=== PATIENT | male | born 1980 | race Caucasian/White ===

== ENCOUNTER → 2019-07-08 15:44 | Outpatient (CLI) | payer BC, SELFPAY ==
--- NOTE | ~2019-07-08 | XR_ITS ---
XR shoulder RT min 2V 07/08/2019 16:22 Indication: Right shoulder pain Procedure: 5 views right shoulder Comparison: No prior studies for comparison. Findings: There is mild degenerative change of the glenohumeral joint. Anatomic alignment. No fractur e, subluxation or dislocation. No radiopaque foreign bodies. Impression: 1: Mild degenerative joint disease of the glenohumeral joint. Reviewed, dictated and finalized at location A. GER RISK Impression: 1: Mild degenerative joint disease of the glenohumeral joint.
--- NOTE | ~2019-07-08 | XR_ITS ---
XR knee LT min 4V 07/08/2019 16:21 Indication: Bilateral knee pain Procedure: 4 views of each knee Comparison: No prior studies for comparison. Findings: There is mild-moderate tricompartment osteoarthritis of the right knee, most advanced in th e medial compartment. There is a sclerotic lesion of the distal aspect of the right femur. No cortica l expansion or periosteal reaction observed. No significant joint effusion. There is mild osteoarthri tis of the left knee. No joint effusion. No fracture or traumatic malalignment. Impression: 1: Bilateral osteoarthritis of the knees, right greater than left. 2: Sclerotic lesion of the distal right femoral metadiaphysis, most likely benign. If there is a hist ory of malignancy, consider correlation with bone scan to assess for abnormal uptake. Reviewed, dictated and finalized at location A. LESS SALES CONSULTANT Impression: 1: Bilateral osteoarthritis of the knees, right greater than left. 2: Sclerotic lesion of the distal right femoral metadiaphysis, most likely romel gn. If there is a history of malignancy, consider correlation with bone scan to assess for abnormal uptake.
--- NOTE | ~2019-07-08 | XR_ITS ---
Please see left knee report for details. Reviewed, dictated and finalized at location A. ACE MINER
== END ==
PROVIDERS: PCP Family Medicine; Visit Provider Nurse Practitioner Adult Health
DX: M25.561 Pain in right knee (principal); M25.511 Pain in right shoulder; M19.011 Primary osteoarthritis, right shoulder; M17.0 Bilateral primary osteoarthritis of knee; M25.862 Other specified joint disorders, left knee
CPT/HCPCS: 73030; 73564

== ENCOUNTER 2020-12-11 08:32 | Outpatient (CLI) | payer BC, SELFPAY ==
--- NOTE | ~2020-12-11 | MR_ITS ---
EXAMINATION: MR knee LT wo con DATE: 12/11/2020 09:21 INDICATION: Left knee pain. TECHNIQUE: Magnetic resonance imaging (MRI) of the left knee was performed without intravenous contra st. Sequences included axial PD-weighted FS FSE, coronal PD-weighted FSE and PD-weighted FS FSE, sagi ttal PD-weighted FSE, and sagittal T2-weighted FS FSE. COMPARISON: Left knee radiograph 11/26/2020 FINDINGS: Medial compartment: Medial meniscus is normal. Medial compartment cartilage is normal. Lateral compartment: Lateral meniscus is normal. Tibial cartilage is normal. There is shallow partial-thickness cartilage loss of femoral condyle involving the central and posterior articular surface. Patellofemoral compartment: There is shallow partial-thickness cartilage loss of patellar medial facet and median ridge with mild subchondral edema-like signal intensity. There is shallow partial-thickness cartilage loss of centra l trochlea. There is focal full-thickness cartilage loss of patellar medial facet with mild subchondr al edema-like marrow signal intensity. Ligaments and tendons: The anterior and posterior cruciate ligaments are normal. There are changes of prior sprain of medial collateral ligament characterized by thickening and increased signal intensity proximally. The later al collateral ligament complex is normal. There is mild patellar tendinopathy. Fluid: There is a small knee joint effusion. There is a moderate-sized loculated Garg's cyst. There is mild prepatellar and superficial infrapatellar bursitis. IMPRESSION: 1. Severe chondrosis of patellofemoral compartment and mild chondrosis of lateral compartment. 2. Small knee joint effusion. 3. Moderate-sized loculated Garg's cyst. Reviewed, dictated and finalized at location A. IMPRESSION: 1. Severe chondrosis of patellofemoral compartment and mild chondrosis of later al compartment. 2. Small knee joint effusion. 3. Moderate-sized loculated Garg's cyst.
== END 2020-12-11 08:33 ==
PROVIDERS: PCP Family Medicine; Visit Provider Orthopaedic Surgery
DX: M25.462 Effusion, left knee (principal); M71.22 Synovial cyst of popliteal space [Baker], left knee
CPT/HCPCS: 73721

== ENCOUNTER 2021-03-17 08:06 | Outpatient (CLI) | payer BC, SELFPAY ==
[2021-03-17 19:50] LABS: Basophils Absolute Auto 0.1 K/mm3 (0.0-0.1); Basophils Percent Auto 0.8 % (0.2-1.2); Eosinophils Absolute Auto 0.2 K/mm3 (0-0.3); Eosinophils Percent Auto 2.1 % (0-4.4); Hematocrit 44.2 % (42.0-52.0); Immature Granulocyte Absolute 0.05 K/mm3 (0.00-0.031); Immature Granulocyte Percent A 0.5 % (0-0.5); Lymphocytes Absolute Auto 2.05 K/mm3 (0.9-3.2); Lymphocytes Percent Auto 19.2 % (18.3-44.2); Mean Corpuscular HGB Conc 31.7 g/dl (32-36); Mean Corpuscular Hemoglobin 29.2 pg (26-34); Mean Corpuscular Volume 92.3 fl (80-100); Mean Platelet Volume 11.3 fl (7.4-10.4); Monocytes Absolute Auto 0.8 K/mm3 (0.1-0.6); Monocytes Percent Auto 7.2 % (2.6-8.5); Neutrophils Absolute Auto 7.5 K/mm3 (1.3-6.7); Neutrophils Percent Auto 70.2 % (45.5-73.1); Platelet Count Result 211 k/mm3 (150-375); Red Blood Count 4.79 M/mm3 (4.6-6.20); Red Cell Distribution Width 14.8 % (11.5-14.5); White Blood Count 10.7 K/mm3 (4.5-10.0)
[2021-03-17 19:52] LABS: Alanine Aminotransferase 42 U/L (4-50); Albumin Level 3.9 g/dL (3.5-5.1); Alkaline Phosphatase 98 U/L (38-126); Anion Gap 8 mmol/L (8-16); Aspartate Amino Transferase 34 U/L (17-59); Bilirubin,Total 0.7 mg/dL (0.2-1.3); Blood Urea Nitrogen 12 mg/dL (9-20); Calcium 8.8 mg/dL (8.4-10.2); Carbon Dioxide 23 mmol/L (22-30); Chloride 110 mmol/L (98-107); Cholesterol 179 mg/dL (0-200); Estimated Glomerular Filt Rate > 60; Glucose 117 mg/dL (65-110); HDL Direct 38 mg/dL; Potassium 4.2 mmol/L (3.4-5.0); Sodium 141 mmol/L (137-145); Triglycerides 144 mg/dL (<150)
[2021-03-17 20:03] LABS: LDL Cholesterol Direct 99 mg/dL
[2021-03-17 21:18] LABS: Hemoglobin A1C 5.7 % (<5.7)
[2021-03-20 13:45] LABS: Testosterone Free 86.8 pg/mL (35.0-155.0); Testosterone Total 360 ng/dL (250-1100)
== END 2021-03-17 08:07 | disposition home or self-care (01) ==
LOC: ANHBWCLAB 08:07
PROVIDERS: PCP Family Medicine; Visit Provider Family Medicine
DX: Z00.00 Encounter for general adult medical examination without abnormal findings (principal); N52.9 Male erectile dysfunction, unspecified; G47.10 Hypersomnia, unspecified; E66.9 Obesity, unspecified
CPT/HCPCS: 36415; 80053; 80061; 80299; 83036; 84402; 84403; 84443; 85025

== ENCOUNTER 2021-03-23 14:41 | Outpatient (CLI) | payer BC, SELFPAY ==
[2021-03-27 10:38] LABS: Amphetamines NEGATIVE ng/mL (<500); Barbiturates NEGATIVE ng/mL (<300); Benzodiazepines NEGATIVE ng/mL (<100); Cocaine Metabolite NEGATIVE ng/mL (<100); Marijuana Metabolite POSITIVE ng/mL (<20); Methadone Metabolite NEGATIVE ng/mL (<100); Opiates NEGATIVE ng/mL (<100); Oxidant NEGATIVE mcg/mL (<200); pH 7.1 (4.5-9.0)
== END 2021-03-23 14:42 | disposition home or self-care (01) ==
LOC: ANHBWCLAB 14:43
PROVIDERS: PCP Family Medicine; Visit Provider Family Medicine
DX: N52.9 Male erectile dysfunction, unspecified (principal); G47.10 Hypersomnia, unspecified; E66.9 Obesity, unspecified; Z00.00 Encounter for general adult medical examination without abnormal findings
CPT/HCPCS: 80299

== ENCOUNTER 2022-10-16 11:29 | Outpatient (CLI) | payer BC, SELFPAY ==
[2022-10-16 18:47] LABS: Basophils Absolute Auto 0.1 K/mm3 (0.0-0.1); Basophils Percent Auto 0.6 % (0.2-1.2); Eosinophils Absolute Auto 0.1 K/mm3 (0-0.3); Eosinophils Percent Auto 0.6 % (0-4.4); Hematocrit 47.3 % (42.0-52.0); Hemoglobin 15.4 g/dL (14.0-18.0); Immature Granulocyte Absolute 0.02 K/mm3 (0.00-0.031); Immature Granulocyte Percent A 0.3 % (0-0.5); Lymphocytes Absolute Auto 1.23 K/mm3 (0.9-3.2); Lymphocytes Percent Auto 15.9 % (18.3-44.2); Mean Corpuscular HGB Conc 32.6 g/dl (32-36); Mean Corpuscular Hemoglobin 29.6 pg (26-34); Mean Platelet Volume 10.4 fl (7.4-10.4); Monocytes Absolute Auto 0.3 K/mm3 (0.1-0.6); Monocytes Percent Auto 3.6 % (2.6-8.5); Neutrophils Absolute Auto 6.1 K/mm3 (1.3-6.7); Platelet Count Result 240 k/mm3 (150-375); Red Cell Distribution Width 13.4 % (11.5-14.5); White Blood Count 7.7 K/mm3 (4.5-10.0)
[2022-10-16 18:53] LABS: Alanine Aminotransferase 23 U/L (6-50); Albumin Level 4.4 g/dL (3.5-5.1); Alkaline Phosphatase 58 U/L (38-126); Anion Gap 10 mmol/L (8-16); Aspartate Amino Transferase 55 U/L (17-59); Bilirubin,Total 1.7 mg/dL (0.2-1.3); Blood Urea Nitrogen 9 mg/dL (9-20); Calcium 8.9 mg/dL (8.4-10.2); Carbon Dioxide 25 mmol/L (22-30); Chloride 104 mmol/L (98-107); Cholesterol 171 mg/dL (0-200); Estimated Glomerular Filt Rate > 60; Glucose 149 mg/dL (65-110); HDL Direct 44 mg/dL; Potassium 3.9 mmol/L (3.4-5.0); Sodium 139 mmol/L (137-145); Triglycerides 89 mg/dL (<150)
[2022-10-16 19:07] LABS: LDL Cholesterol Direct 97 mg/dL
[2022-10-21 08:49] LABS: Amphetamines NEGATIVE ng/mL (<500); Barbiturates NEGATIVE ng/mL (<300); Benzodiazepines NEGATIVE ng/mL (<100); Cocaine Metabolite NEGATIVE ng/mL (<100); Codeine NEGATIVE ng/mL (<50); Hydrocodone 1300 ng/mL (<50); Hydromorphone 920 ng/mL (<50); Marijuana Metabolite >5000 ng/mL (<5); Methadone Metabolite NEGATIVE ng/mL (<100); Morphine NEGATIVE ng/mL (<50); Norhydrocodone 3900 ng/mL (<50); Opiates POSITIVE ng/mL (<100); Oxidant NEGATIVE mcg/mL (<200); pH 6.3 (4.5-9.0)
== END 2022-10-16 11:30 | disposition home or self-care (01) ==
LOC: ANHBWCLAB 11:30
PROVIDERS: PCP Family Medicine; Visit Provider Family Medicine
DX: Z00.00 Encounter for general adult medical examination without abnormal findings (principal); E66.9 Obesity, unspecified; G47.30 Sleep apnea, unspecified; J30.2 Other seasonal allergic rhinitis; N52.9 Male erectile dysfunction, unspecified
CPT/HCPCS: 36415; 80053; 80061; 80299; 85025

== ENCOUNTER 2023-10-22 16:24 | Outpatient (CLI) | payer BC, SELFPAY ==
[2023-10-22 19:17] LABS: Hematocrit 47.4 % (42.0-52.0); Hemoglobin 15.3 g/dL (14.0-18.0); Mean Corpuscular HGB Conc 32.3 g/dl (32-36); Mean Corpuscular Hemoglobin 29.3 pg (26-34); Mean Corpuscular Volume 90.6 fl (80-100); Mean Platelet Volume 10.8 fl (7.4-10.4); Platelet Count Result 228 k/mm3 (150-375); Red Blood Count 5.23 M/mm3 (4.6-6.20); Red Cell Distribution Width 13.5 % (11.5-14.5); White Blood Count 11.1 K/mm3 (4.5-10.0)
[2023-10-22 19:42] LABS: Alanine Aminotransferase 18 U/L (6-50); Albumin Level 4.5 g/dL (3.5-5.1); Alkaline Phosphatase 70 U/L (38-126); Anion Gap 7 mmol/L (4-12); Aspartate Amino Transferase 33 U/L (17-59); Bilirubin,Total 1.3 mg/dL (0.2-1.3); Blood Urea Nitrogen 13 mg/dL (9-20); Calcium 9.5 mg/dL (8.4-10.2); Carbon Dioxide 26 mmol/L (22-30); Chloride 107 mmol/L (98-107); Cholesterol 176 mg/dL (0-200); Estimated Glomerular Filt Rate > 60; Glucose 91 mg/dL (65-110); HDL Direct 56 mg/dL; Potassium 3.9 mmol/L (3.4-5.0); Sodium 140 mmol/L (137-145); Triglycerides 90 mg/dL (<150)
[2023-10-22 19:53] LABS: LDL Cholesterol Direct 96 mg/dL
[2023-10-22 20:41] LABS: Vitamin D 25 Hydroxy 22.2 ng/mL
[2023-10-24 18:34] LABS: Amphetamines NEGATIVE ng/mL (<500); Barbiturates NEGATIVE ng/mL (<300); Benzodiazepines NEGATIVE ng/mL (<100); Cocaine Metabolite NEGATIVE ng/mL (<150); Marijuana Metabolite 204 ng/mL (<5); Methadone Metabolite NEGATIVE ng/mL (<100); Opiates NEGATIVE ng/mL (<100); Oxidant NEGATIVE mcg/mL (<200); pH 5.1 (4.5-9.0)
== END 2023-10-22 16:25 | disposition home or self-care (01) ==
PROVIDERS: PCP Family Medicine; Visit Provider Family Medicine
DX: E66.9 Obesity, unspecified (principal); G47.10 Hypersomnia, unspecified; G47.30 Sleep apnea, unspecified; G89.29 Other chronic pain; N40.0 Benign prostatic hyperplasia without lower urinary tract symptoms; N52.9 Male erectile dysfunction, unspecified; Z00.00 Encounter for general adult medical examination without abnormal findings
CPT/HCPCS: 36415; 80053; 80061; 80299; 82306; 82607; 85027

== ENCOUNTER 2023-10-23 06:33 | Outpatient (CLI) | payer BC, SELFPAY ==
[2023-10-27 11:59] LABS: Testosterone Free 91.9 pg/mL (35.0-155.0); Testosterone Total 434 ng/dL (250-1100)
== END 2023-10-23 06:34 | disposition home or self-care (01) ==
LOC: ANHBWCLAB 06:35
PROVIDERS: PCP Family Medicine; Visit Provider Family Medicine
DX: N52.9 Male erectile dysfunction, unspecified (principal); R79.89 Other specified abnormal findings of blood chemistry; R73.09 Other abnormal glucose; R53.83 Other fatigue; E66.9 Obesity, unspecified; N40.0 Benign prostatic hyperplasia without lower urinary tract symptoms; G89.29 Other chronic pain; G47.30 Sleep apnea, unspecified; Z00.00 Encounter for general adult medical examination without abnormal findings
CPT/HCPCS: 36415; 84402; 84403

== ENCOUNTER 2024-04-24 16:17 | Outpatient (CLI) | payer OTHER, SELFPAY ==
[2024-04-24 19:19] LABS: Hemoglobin A1C 5.6 % (<5.7)
== END 2024-04-24 16:18 | disposition home or self-care (01) ==
LOC: ANHLAB 16:18
PROVIDERS: PCP Family Medicine; Visit Provider Family Medicine
DX: E66.9 Obesity, unspecified (principal)
CPT/HCPCS: 36415; 83036

== ENCOUNTER 2024-11-06 12:08 | Outpatient (CLI) | payer OTHER, SELFPAY ==
--- OUTSIDE RECORDS SUMMARY | 2024-11-06 12:11 | XMS_ITS | Referral Summary ---
Author Organization [facility] Address [address] [place] [address] Care Team Providers Care Spanish Translator Name Role Phone Unknown, Notinfile Primary Care Provider Unavail able Allergies No known active allergies Medications fluticasone propionate (FLONASE) 50 mcg/actuation nasal spray 10/26/2023 Active tadalafiL (CIALIS) 5 mg tablet Take 1 tablet (5 mg total) by mouth daily 10/18/2023 Active Active Problems No known active problems Immunizations Immunization Administration Dates Next Due Tdap 09/16/2023 Social History Tobacco Use Types Packs/Day Years Used Date Smoking Tobacco: Unknown Tobacco Cessation:Counseling Given: Not Answered Comments:Smokes an e=cig Personal Safety Answer Date Recorded Have you ever been in or are you currently in a harmful physical or emotional relationship or is someone making you feel afraid or unsafe? 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 Gender Identity Not on file Sexual Orientation Not on file Last Filed Vital Signs Vital Sign Reading Time Taken Comments Blood Pressure 133/67 09/16/2023 5:03 AM CDT Pulse 98 09/16/2023 5:03 AM CDT Temperature 37.1 C (98.7 F) 09/16/2023 5:00 AM CDT Respiratory Rate 16 09/16/2023 5:00 AM CDT Oxygen Saturation 100% 09/16/2023 5:03 AM CDT Inhaled Oxygen Concentration - - Weight 90.7 kg (200 lb) 09/16/2023 4:56 AM CDT Height 172.7 cm (5' 8) 09/16/2023 4:56 AM CDT Body Mass Index 30.41 09/16/2023 4:56 AM CDT Plan of Treatment Not on file Insurance [employer] ACCESS OOS [employer] ACCESS OOS Care Teams Spanish Translator Relationship Specialty Start Date End Date Unknown, Notinfile PCP - General 05/22/23
--- OUTSIDE RECORDS SUMMARY | 2024-11-06 12:11 | XMS_ITS | Clinical Summary ---
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 Gender Identity Not on file Sexual Orientation Not on file Obstetrics History Last Filed Vital Signs Vital Sign Reading [...] 09/16/2023 4:56 AM CDT Plan of Treatment Health Maintenance Due Date Last Done Comments Depression Screening 1980 Hepatitis C Screening 1980 Varicella Vaccines (1 of 2 - 13+ 2-dose series) 1993 Hepatitis B Screening 1998 Regular Well Visit/Exam 18-64 1998 Influenza Vaccine (Season Ended) 2025 DTaP/Tdap/Td Vaccine (2 - Td or Tdap) 09/15/2033 09/16/2023 HPV Vaccines Aged Out No longer eligi ble based on patient's age to complete this topic Pneumococcal vaccine <65 Aged Out No longer eligible based on patient's age to complete this topic Insurance [employer] OOS [employer] OOS Care Teams Dry Transfer Worker Relationship Specialty Start Date End Date Unknown, Notinfile PCP - General 05/22/23
--- OUTSIDE RECORDS SUMMARY | 2024-11-06 12:11 | XMS_ITS | Clinical Summary ---
Author Organization [facility] Address [address] [place] [address] Phone Care Team Providers Care Forming Tube Selector Name Role Phone Provider, None Primary Care Provider Unavailabl e Allergies No known active allergies Medications traMADol (ULTRAM) 50 MG Tablet Take 1 Tab by mouth every 6 hours as needed for Pain. 20 Tab 0 06/15/2016 Active Active Problems No known active problems Social History Tobacco Use Types Packs/Day Years Used Date Smoking Tobacco: Former Cigarettes Alcohol Use Standard Drinks/Week Comments Yes 0 (1 standard drink = 0.6 oz pur e alcohol) social Sex and Gender Information Value Date Recorded Sex Assigned at Not on file Legal Sex Male 9:32 PM CDT Gender Identity Not on file Sexual Orientation Not on file Last Filed Vital Signs Vital Sign Reading Time Taken Comments Blood Pressure 129/77 06/15/2016 4:30 AM HYDRO ELECTRIC STATION OPERATOR Pulse - - Temperature 37.1 C (98.7 F) 06/15/2016 4:30 AM HYDRO ELECTRIC STATION OPERATOR Respiratory Rate 17 06/15/2016 4:30 AM HYDRO ELECTRIC STATION OPERATOR Oxygen Saturation 97% 06/15/2016 4:30 AM HYDRO ELECTRIC STATION OPERATOR Inhaled Oxygen Concentration - - Weight 127 kg (280 lb) 06/15/2016 4:30 AM HYDRO ELECTRIC STATION OPERATOR Height 172.7 cm (5' 8) 06/15/2016 4:30 AM HYDRO ELECTRIC STATION OPERATOR Body Mass Index 42.57 06/15/2016 4:30 AM HYDRO ELECTRIC STATION OPERATOR Plan of Treatment Not on file Care Teams Forming Tube Selector Relationship Specialty Start Date End Date Provider, None [place] PCP - General 06/15/16
[2024-11-06 20:04] LABS: Alanine Aminotransferase 42 U/L (6-50); Albumin Level 4.4 g/dL (3.5-5.1); Alkaline Phosphatase 77 U/L (38-126); Anion Gap 9 mmol/L (4-12); Aspartate Amino Transferase 61 U/L (17-59); Bilirubin,Total 1.1 mg/dL (0.2-1.3); Blood Urea Nitrogen 15 mg/dL (9-20); Calcium 9.4 mg/dL (8.4-10.2); Carbon Dioxide 25 mmol/L (22-30); Chloride 103 mmol/L (98-107); Cholesterol 218 mg/dL (0-200); Estimated Glomerular Filt Rate > 60; Glucose 108 mg/dL (65-110); HDL Direct 44 mg/dL; Potassium 4.2 mmol/L (3.4-5.0); Sodium 137 mmol/L (137-145); Triglycerides 218 mg/dL (<150)
[2024-11-06 20:16] LABS: LDL Cholesterol Direct 114 mg/dL
[2024-11-06 20:26] LABS: Hematocrit 45.9 % (42.0-52.0); Hemoglobin 14.5 g/dL (14.0-18.0); Mean Corpuscular HGB Conc 31.6 g/dl (32-36); Mean Corpuscular Hemoglobin 27.6 pg (26-34); Mean Corpuscular Volume 87.3 fl (80-100); Mean Platelet Volume 10.2 fl (7.4-10.4); Platelet Count Result 242 k/mm3 (150-375); Red Blood Count 5.26 M/mm3 (4.6-6.20); Red Cell Distribution Width 13.8 % (11.5-14.5); White Blood Count 10.4 K/mm3 (4.5-10.0)
[2024-11-11 10:39] LABS: Amphetamines NEGATIVE ng/mL (<500); Barbiturates NEGATIVE ng/mL (<300); Benzodiazepines NEGATIVE ng/mL (<100); Cocaine Metabolite NEGATIVE ng/mL (<150); Codeine NEGATIVE ng/mL (<50); Hydrocodone 2842 ng/mL (<50); Hydromorphone 747 ng/mL (<50); Marijuana Metabolite NEGATIVE ng/mL (<20); Methadone Metabolite NEGATIVE ng/mL (<100); Morphine NEGATIVE ng/mL (<50); Norhydrocodone 1919 ng/mL (<50); Opiates POSITIVE ng/mL (<100); Oxidant NEGATIVE mcg/mL (<200); pH 5.2 (4.5-9.0)
== END 2024-11-06 12:09 | disposition home or self-care (01) ==
LOC: ANHBWCLAB 12:09
PROVIDERS: PCP Family Medicine; Visit Provider Family Medicine
DX: Z00.00 Encounter for general adult medical examination without abnormal findings (principal); E66.9 Obesity, unspecified; N52.9 Male erectile dysfunction, unspecified; N40.0 Benign prostatic hyperplasia without lower urinary tract symptoms; G89.29 Other chronic pain
CPT/HCPCS: 36415; 80053; 80061; 80299; 85027

== ENCOUNTER 2025-03-25 08:39 | Outpatient (CLI) | payer OTHER, SELFPAY ==
--- OUTSIDE RECORDS SUMMARY | 2025-03-25 09:06 | XMS_ITS | Clinical Summary ---
Author Organization [facility] Address [address] [place] [address] Phone Care Team Providers Care Coffee Machine Technician Name Role Phone Provider, None Primary Care [...] Comments Blood Pressure 129/77 06/15/2016 4:30 AM FILTER TIP INSPECTOR Pulse - - Temperature 37.1 C (98.7 F) 06/15/2016 4:30 AM FILTER TIP INSPECTOR Respiratory Rate 17 06/15/2016 4:30 AM FILTER TIP INSPECTOR Oxygen Saturation 97% 06/15/2016 4:30 AM FILTER TIP INSPECTOR Inhaled Oxygen Concentration - - Weight 127 kg (280 lb) 06/15/2016 4:30 AM FILTER TIP INSPECTOR Height 172.7 cm (5' 8) 06/15/2016 4:30 AM FILTER TIP INSPECTOR Body Mass Index 42.57 06/15/2016 4:30 AM FILTER TIP INSPECTOR Plan of Treatment Not on file Care Teams Coffee Machine Technician Relationship Specialty Start Date End Date Provider, None [place] PCP - General 06/15/16
--- NOTE | 2025-04-20 11:53 | WPDHOMESLEEP ---
Sleep Study - Home Unattended Date of Study: 03/18/25 Ordering Provider: Maurice Mooney MD Interpreting Provider: Kiah Rosenbaum MD Home Sleep Study Type: Watch PAT Height: 1.73 m Weight: 154.221 kg Body Mass Index: 51.7 Neck Circumference (inches): 16 [place]: 15 Reason for Sleep Study Hypersomnolence Sleep History Edvin Bonilla is a 44-year-old male with excessive daytime sleepiness. He does not have hypertension. He has an elevated body mass index of 51. He has loud snoring, witnessed apneas and he has choking and gasping at night. He does not have difficulty breathing when he is on his back. He does not awaken with a morning headache. He does not have a dry mouth or sore throat on waking. He does not have nocturnal heartburn. He does not wake to urinate at night. He was previously tested in 2019 with no sleep apnea being detected. He does not have other sleep diagnoses. When he awakens at night he has difficulty returning to sleep. He has no difficulty falling asleep. He does not awaken too early, he does not use sedatives and he does not feel anxious about his sleep. He is usually tired and fatigued during the day, he does not rule feel refreshed on waking and he has an urge to fall asleep during the day. He does experience drowsy driving. He has an urge to move his legs in the evening, this does not get worse with rest. It does get better with activities. This does not really worry him or concern him. He often wakes up before his desired wake time. He does not grind his teeth at night or kick excessively. He does not act out his dreams. There is no history of sleepwalking. There is no family history of sleep disorders. Normal bedtime is 10:00 p.m. falling asleep within 15 minutes, spending 5 hours in bed and 5 hours sleeping. On days off bedtime is 11:00 p.m. falling asleep within 15 minutes spending 6 hours in bed and 6 hours of sleep. Habits: Tobacco : former smoker Caffeine : 1-2 cups Alcohol : 3 drinks per night Recreational substances : none reported PMF Past Medical History Medical History Knee pain Sinusitis Erectile dysfunction Hypersomnolence Obesity Social History Social History Smoking packs per day: 1 Smoking cigarettes per day: 20.0 Years smoked: 15 Smoking pack-years: 15.00 Smoking status: Former smoker Tobacco type: e-cigarettes/vaping Alcohol intake: current Substance use type: does not use Lack of Transportation: No Lack of Food: Sometimes True Current Housing: I Have Housing Concerned About Future Housing: No Difficulty Paying Gas/Electric Bills: No Difficulty Paying for Meds: No Currently Unemployed: No Education: High School Diploma/GED Difficulty w/ Childcare or Family Care: No Gender identity (if verbalized by the patient): Male Medications Home Medications ?Medication ?Instructions ?Recorded ?Confirmed ?Type pen needle, diabetic 32 gauge x #100 ea 07/05/21 08/01/23 Rx 1/4 (Novofine 32) hydrocortisone 2.5 % topical cream 1 applic topical BID PRN skin 10/22/23 10/22/23 Rx irritation #30 grams silver sulfadiazine 1 % topical 1 applic topical DAILY PRN 10/22/23 10/22/23 Rx cream (Silvadene) motorcycle harris #85 grams fluticasone propionate 50 See Rx Instructions .Route 10/26/23 Rx mcg/actuation nasal .COMPLEX #48 mL spray,suspension tadalafil 5 mg tablet 5 mg PO DAILY #90 tabs 09/10/24 Rx ibuprofen 400 mg tablet 400 mg PO BID PRN pain #180 tabs 01/06/25 Rx hydrocodone 5 mg-acetaminophen 325 1.5 tablet PO BID PRN pain #60 tabs 04/13/25 Rx mg tablet tirzepatide (weight loss) 2.5 2.5 mg (0.5 mL) subcut WEEKLY #2 mL 04/15/25 04/15/25 Rx mg/0.5 mL subcutaneous pen injector (Zepbound) cholecalciferol (vitamin D3) 1,250 1,250 mcg PO WEEKLY #14 tabs 04/17/25 Rx mcg (50,000 unit) tablet Sleep Procedure The sleep study was completed using WatchPAT a technically adequate device with seven channels: peripheral arterial tone, actigraphy, body position, snore, respiratory movement, pulse oximetry, sleep staging, and heart rate. Prior to using the device, the patient received verbal and written instructions for its application and was provided with the help desk phone number for additional telephonic instruction with 24-hour availability of qualified personnel to answer questions. Sleep Architecture The total recording time is 4 hrs, 44 min. The total sleep time is 3 hrs, 18 min. Sleep latency is 18 minutes. REM latency is 33 minutes. The patient had 15 episodes of waking. Sleep architecture shows 26.0% deep sleep, 51.1% light sleep, 22.9% stage REM. The patient spent 24.2% of total sleep time in the supine position. Sleep efficiency was 70%. Respiratory Analysis The overall AHI (pAHI 3%:) is 21.3. The central AHI is 0.3. The AHI was 21.7 in NREM and 19.9 in REM sleep. The AHI was 47.9 in Supine and 12.6 in Non-supine sleep. Percent of Jose Jackson respirations is 0. Oximetry Data The oxygen desaturation index (TEZ 4%:) is 14.0. The mean saturation is 93%, and the lowest saturation is 79%. Time spent with saturation < 88% is 1.2 minutes. Snoring Profile Snoring average intensity is 46 dB. The patient snored above 45 decibels for 74.3 minutes, 37.4% of sleep time. Cardiac Profile The average pulse rate is 84 beats per minutes. The lowest pulse rate is 55 bpm. The highest pulse rate is 110 bpm. Cardiac Rhythm Analysis in Sleep does not show any suspected atrial fibrillation. Assessment and Plan Assessment and Plan (1) Obstructive sleep apnea: Code(s): G47.33 - Obstructive sleep apnea (adult) (pediatric) Status: Acute Assessment and Plan: This home sleep test using WatchPat on 03/25/2025 shows moderate obstructive sleep apnea, the apnea-hypopnea index is 16.5 (p>4%) with desaturation to 79%, 1.2 minute spent below 88% and frequent loud snoring. His mean snoring intensity was 46 decibels. His events were much worse in the supine position, supine apnea-hypopnea index is 47.9, nonsupine index is 12.6. He had no central apneas. I recommend that this patient be prescribed Resmed AirSense 11 AutoPAP 5-15 cm H2O, CPAP mask/filters/tubing and humidifier chamber. This should be used with all episodes of sleep. Compliance should be reviewed within 31-90 days of starting therapy for usage greater than 4 hours per night greater than 70% of the nights. The patient should be asked about symptoms such as excessive daytime sleepiness, quality of sleep, decreased nocturia, increased mental functioning such as memory, mood, and concentration. BMI is 51. Weight management is advised as clinical data suggests that weight loss of 10% can reduce the severity of respiratory events and snoring and improve AHI by as much as 25%. He is activly losing weight, medication list shows tirzepatide injections. (2) Inadequate sleep hygiene: Code(s): Z72.821 - Inadequate sleep hygiene Status: Acute Assessment and Plan: The patient history indicates sleep restriction. He allows himself 5 hours for sleeping onnights before work, and 6 hours for sleeping on days off. This is contributing to his excessive daytime sleepiness in addition to his untreated obstructive sleep apnea. The patient should allow himself 7 - 8 hours at night for an opportunity to sleep so he can satisfy his sleep debt. He reports 3 drinks at night before bed which may be disrupting his sleep. Alcohol can be sedating but as it wears off it can cause rebound awakening. Recommendations to improve sleep quality include: ? Practice a bedtime routine and keep the same sleep schedule including bedtime and wake up time, even on the weekends. Consistency makes it much easier to fall asleep and wake easily. ? If you have trouble sleeping at night, avoid naps, especially in the late afternoon. However, short naps lasting approximately 20 minutes can help alleviate daytime fatigue, sleepiness, and even provide cognitive benefit. Naps longer than 30 minutes can cause sleep inertia, a period of reduced alertness and cognitive performance after waking. ? Exercise daily. ? Maintain a sleep environment conducive to sleep. The bedroom should be comfortably cool. In population studies, nocturnal environmental light and noise significantly impact sleep quality and quantity. Use of blackout curtains, ear plugs, or sound machines may help promote an optimal sleep environment for individuals with sleep disruptions due to environmental stimuli. ? Sleep on a comfortable mattress and pillows. ? Regular bright light exposure in the mornings may help to maximize alertness and maintain a regular circadian rhythm. Studies in extreme latitudes where sunlight is minimal in the winter have found that an hour of exposure to white light in the morning helped subjects go to sleep earlier and wake earlier. Exposure to blue light in the morning may have more robust effects on the stability of the circadian rhythm and has been shown to improve daytime fatigue and sleepiness. ? Avoid cigarettes, caffeine, and heavy meals in the evening. While alcohol use does seem to reduce the time it takes to fall asleep, studies have reported that evening alcohol intake can cause more waking time or light sleep in the second half of the night and reduce self-reported sleep quality. Evening nicotine is associated with lower sleep efficiency and more awake time during the night. ? Wind down with quiet activities that may promote sleep, such as reading with a dim light. Avoid use of electronics at least 30 minutes before habitual bedtime and in the middle of the night if nocturnal awakenings occur. The blue light emitted from computer screens and hand-held devices can suppress natural melatonin production, resulting in difficulty falling asleep; however, the exact duration of use and intensity of lighting that cause this effect are variable in the literature. ? If you cannot sleep, do not look at a clock. Go into another room and do something relaxing until you feel drowsy enough to fall asleep again. Then return to bed. Data The data obtained during this sleep study is adequate for interpretation. Certification This sleep study has been reviewed by a board certified sleep medicine physician.
[2025-04-23 10:20] VITALS: BMI 51.7
== END 2025-03-27 11:21 | disposition home or self-care (01) ==
LOC: ANHCSM 08:40
PROVIDERS: PCP Family Medicine; Visit Provider Family Medicine
DX: G47.33 Obstructive sleep apnea (adult) (pediatric) (principal); Z72.821 Inadequate sleep hygiene; Z68.43 Body mass index [BMI] 50.0-59.9, adult
CPT/HCPCS: 95800

== ENCOUNTER 2025-04-15 07:47 | Outpatient (CLI) | payer OTHER, SELFPAY ==
--- OUTSIDE RECORDS SUMMARY | 2025-04-15 07:51 | XMS_ITS | Clinical Summary ---
Author Organization [facility] Address [address] [place] [address] Phone Care Team Providers Care Eye Clinic Manager Name Role Phone Provider, None Primary Care [...] Comments Blood Pressure 129/77 06/15/2016 4:30 AM ACID BLEACHER Pulse - - Temperature 37.1 C (98.7 F) 06/15/2016 4:30 AM ACID BLEACHER Respiratory Rate 17 06/15/2016 4:30 AM ACID BLEACHER Oxygen Saturation 97% 06/15/2016 4:30 AM ACID BLEACHER Inhaled Oxygen Concentration - - Weight 127 kg (280 lb) 06/15/2016 4:30 AM ACID BLEACHER Height 172.7 cm (5' 8) 06/15/2016 4:30 AM ACID BLEACHER Body Mass Index 42.57 06/15/2016 4:30 AM ACID BLEACHER Plan of Treatment Not on file Care Teams Eye Clinic Manager Relationship Specialty Start Date End Date Provider, None [place] PCP - General 06/15/16
--- OUTSIDE RECORDS SUMMARY | 2025-04-15 07:51 | XMS_ITS | Clinical Summary ---
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
[2025-04-15 08:29] LABS: Hematocrit 43.0 % (42.0-52.0); Hemoglobin 13.9 g/dL (14.0-18.0); Immature Granulocyte Percent A 0.8 % (0-0.5); Lymphocytes Absolute Auto 1.52 K/mm3 (0.9-3.2); Mean Corpuscular HGB Conc 32.3 g/dl (32-36); Mean Corpuscular Hemoglobin 27.5 pg (26-34); Mean Corpuscular Volume 85.0 fl (80-100); Nucleated Red Blood Cells Absolute Auto 0.000 K/mm3 (0.0-0.012); Nucleated Red Blood Cells Perc 0.0 % (0.0-0.2); Platelet Count Result 246 k/mm3 (150-375); Red Blood Count 5.06 M/mm3 (4.6-6.20); White Blood Count 8.4 K/mm3 (4.5-10.0)
[2025-04-15 08:55] LABS: Alanine Aminotransferase 52 U/L (6-50); Albumin Level 4.0 g/dL (3.5-5.1); Alkaline Phosphatase 83 U/L (38-126); Anion Gap 5 mmol/L (4-12); Aspartate Amino Transferase 34 U/L (17-59); Bilirubin,Total 0.7 mg/dL (0.2-1.3); Blood Urea Nitrogen 12 mg/dL (9-20); Calcium 8.9 mg/dL (8.4-10.2); Carbon Dioxide 26 mmol/L (22-30); Chloride 106 mmol/L (98-107); Estimated Glomerular Filt Rate > 60; Glucose 109 mg/dL (65-110); Potassium 4.2 mmol/L (3.4-5.0); Sodium 137 mmol/L (137-145); Total Protein 7.0 g/dL (6.3-8.2)
[2025-04-15 09:49] LABS: Vitamin B12 804.0 pg/mL (239-931)
== END 2025-04-15 07:48 | disposition home or self-care (01) ==
LOC: ANHLAB 07:47
PROVIDERS: PCP Family Medicine; Visit Provider Family Medicine
DX: E66.9 Obesity, unspecified (principal); N40.0 Benign prostatic hyperplasia without lower urinary tract symptoms; N52.9 Male erectile dysfunction, unspecified; G47.30 Sleep apnea, unspecified; Z00.00 Encounter for general adult medical examination without abnormal findings
CPT/HCPCS: 36415; 80053; 82306; 82607; 85025

== ENCOUNTER 2025-05-04 08:43 | Outpatient (CLI) | payer OTHER, SELFPAY ==
--- NOTE | ~2025-05-04 | US_ITS ---
US abdomen limited Indication: R74.8 - Abnormal levels of other serum enzymes Comparison: None Technique: Nelson-scale and color Doppler images were obtained. Findings: LIVER: Severe increased echogenicity of the liver. . Liver measures 18.5 cm GALLBLADDER/BILIARY: Unremarkable.No cholelithiais, wall thickening or pericholecystic fluid. No biliary dilatation. CBD 2.5 mm. Eure sign negative. PANCREAS: Pancreas limited by bowel gas. Right Kidney: Right kidney grossly normal but limited. Impression: Severe hepatic steatosis versus hepatocellular disease. Reviewed, dictated and finalized at location [employer] Impression: Severe hepatic steatosis versus hepatocellular disease.
--- OUTSIDE RECORDS SUMMARY | 2025-05-04 07:12 | XMS_ITS | Clinical Summary ---
Author Organization [facility] Address [address] [place] [address] Phone Care Team Providers Care Mgmt Analyst Name Role Phone Provider, None Primary Care [...] Comments Blood Pressure 129/77 06/15/2016 4:30 AM BUTTON AND BUCKLE MAKER Pulse - - Temperature 37.1 C (98.7 F) 06/15/2016 4:30 AM BUTTON AND BUCKLE MAKER Respiratory Rate 17 06/15/2016 4:30 AM BUTTON AND BUCKLE MAKER Oxygen Saturation 97% 06/15/2016 4:30 AM BUTTON AND BUCKLE MAKER Inhaled Oxygen Concentration - - Weight 127 kg (280 lb) 06/15/2016 4:30 AM BUTTON AND BUCKLE MAKER Height 172.7 cm (5' 8) 06/15/2016 4:30 AM BUTTON AND BUCKLE MAKER Body Mass Index 42.57 06/15/2016 4:30 AM BUTTON AND BUCKLE MAKER Plan of Treatment Not on file Care Teams Mgmt Analyst Relationship Specialty Start Date End Date Provider, None [place] PCP - General 06/15/16
--- OUTSIDE RECORDS SUMMARY | 2025-05-04 07:12 | XMS_ITS | Clinical Summary ---
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
--- OUTSIDE RECORDS SUMMARY | 2025-05-04 09:05 | XMS_ITS | Clinical Summary ---
Author Organization [facility] Address [address] [place] [address] Phone Care Team Providers Care Protein Purification Scientist Name Role Phone Provider, None Primary Care [...] Comments Blood Pressure 129/77 06/15/2016 4:30 AM MEDICAL PAYMENT POSTER Pulse - - Temperature 37.1 C (98.7 F) 06/15/2016 4:30 AM MEDICAL PAYMENT POSTER Respiratory Rate 17 06/15/2016 4:30 AM MEDICAL PAYMENT POSTER Oxygen Saturation 97% 06/15/2016 4:30 AM MEDICAL PAYMENT POSTER Inhaled Oxygen Concentration - - Weight 127 kg (280 lb) 06/15/2016 4:30 AM MEDICAL PAYMENT POSTER Height 172.7 cm (5' 8) 06/15/2016 4:30 AM MEDICAL PAYMENT POSTER Body Mass Index 42.57 06/15/2016 4:30 AM MEDICAL PAYMENT POSTER Plan of Treatment Not on file Care Teams Protein Purification Scientist Relationship Specialty Start Date End Date Provider, None [place] PCP - General 06/15/16
--- OUTSIDE RECORDS SUMMARY | 2025-05-04 09:05 | XMS_ITS | Clinical Summary ---
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 Gender Identity Not on file Sexual Orientation [...] patient's age to complete this topic Insurance [employer] OOS Member Subscriber Plan / Payer (Ef fective 2019-Present) Name:Edvin Bonilla Relation to Subscriber:Self Name:Edvin Bonilla Payer ID:[id number] (NAIC) Type:[employer] Address: [place] [address] [employer] OOS Member Subscriber Plan / Payer (Ef fective 2019-Present) Name:Edvin Bonilla Relation to Subscriber:Self Name:Edvin Bonilla Payer ID:[id number] (NAIC) Type:[employer] Address: [address] [place] [address] Care Teams Foot Gatherer Relationship Specialty Start Date End Date Unknown, Notinfile PCP - General 05/22/23
[2025-05-04 11:01] LABS: Hepatitis B Surface Antigen Negative (Negative)
[2025-05-04 11:07] LABS: HAV RESULT Negative (Negative); Hepatitis B Core IgM Result Negative (Negative)
== END 2025-05-04 08:44 | disposition home or self-care (01) ==
PROVIDERS: PCP Family Medicine; Visit Provider Family Medicine
DX: K76.0 Fatty (change of) liver, not elsewhere classified (principal); K76.89 Other specified diseases of liver; R74.8 Abnormal levels of other serum enzymes
CPT/HCPCS: 36415; 76705; 80074